=== PATIENT | male | born 1965 | race African-American/Black ===

== ENCOUNTER 2021-10-04 02:53 | Emergency (ER) | payer MEDICAID ==
[~2021-10-04] VITALS: Ht 172.7 cm; Wt 81.6 kg
[2021-10-04] MEDS ORDERED: PREDNISONE 20MG TABLET PO STA (05:49)
[2021-10-04] MEDS ORDERED: IPRATROPIUM BROMIDE (0.02%) 0.5MG/2.5ML NEB HHN STA (05:49)
[2021-10-04] MEDS ORDERED: ALBUTEROL (0.083%) 2.5MG/3ML NEB HHN STA (05:49)
[2021-10-04 06:28] LABS: BG BASE EXCESS -0.6 mmol/L (-2.0-2.0); BG DEOXYHEMOGLOBIN 3.4 % (0.0-5.0); BG FRACTION INSPIRED OXYGEN 21; BG HCO3 ACT 24.3 mmol/L (22.0-26.0); BG METHEMOGLOBIN 0.1 % (0.0-1.5); BG OXYGEN SATURATION 96.6 % (92.0-98.5); BG OXYHEMOGLOBIN 96.5 % (94.0-97.0); BG PCO2 41.2 mmHg (35.0-45.0); BG PH 7.389 (7.350-7.450); BG SAMPLE SITE RIGHT RADIAL; BG TOTAL HEMOGLOBIN 15.1 g/dL (12.0-18.0); BG VENT MODE ROOM AIR
[2021-10-04 07:03] LABS: CHLORIDE 104 mEq/L (98-107)
[2021-10-04 07:05] LABS: BASOPHILS % 0.3 % (0.0-2.0); EOSINOPHILS % 3.1 % (0.0-5.0); HEMATOCRIT. 44.8 % (42.0-52.0); HEMOGLOBIN. 14.5 g/dL (14.0-18.0); LYMPHOCYTES % 28.7 % (20.0-50.0); MEAN CORPUSCULAR HEMOGLOBIN 27.2 pg (28.0-32.0); MEAN CORPUSCULAR VOLUME 84.1 fL (80.0-94.0); MEAN PLATELET VOLUME 7.4 fl (7.4-10.4); MONOCYTES % 8.1 % (2.0-8.0); NEUTROPHILS % 59.8 % (40.0-76.0); PLATELET 313 x1000/uL (130-400); RED BLOOD CELL COUNT 5.33 mill/uL (4.7-6.1); RED CELL DISTRIBUTION WIDTH 14.5 % (11.6-14.6)
[2021-10-04] MEDS ORDERED: ALBU6.7H3 INH (07:39)
[2021-10-04] MEDS ORDERED: P50 PO (07:39)
[2021-10-04 08:31] VITALS: BP 129/74
== END 2021-10-04 08:35 | disposition home or self-care (01) ==
LOC: ER 02:53
DX: J45.901 Unspecified asthma with (acute) exacerbation (principal); R94.31 Abnormal electrocardiogram [ECG] [EKG]
CPT/HCPCS: 36415; 36600; 71045; 80053; 82375; 82805; 84484; 85025; 93005; 94640; 99285; J7512; Z7610

== ENCOUNTER 2022-09-17 20:40 | Emergency (ER) | payer MEDICAID ==
[~2022-09-17] VITALS: Ht 188 cm; Wt 96.6 kg
[~2022-09-17 20:40] MED LIST: ALBU6.7H3 INH; P50 PO
[2022-09-17 21:14] VITALS: BP 134/85; PULSE 83; RESP 15; TEMP 98.7; O2SAT 98
[2022-09-17 21:36] LABS: CLARITY URINE CLEAR (CLEAR); COLOR URINE YELLOW (YELLOW); KETONES URINE TRACE (NEGATIVE); LEUKOCYTE ESTERASE URINE NEGATIVE (NEGATIVE); NITRITE URINE NEGATIVE (NEGATIVE); OCCULT BLOOD URINE NEGATIVE (NEGATIVE); PROTEIN URINE TRACE (NEGATIVE); SPECIFIC GRAVITY URINE 1.026 (1.005-1.030)
[2022-09-20 08:10] LABS: HIV SCREEN 4G Non Reactive (Non Reactive)
[2022-09-21 09:07] LABS: NEISSERIA GONORRHOEAE NAA Negative (Negative)
== END 2022-09-17 23:28 | disposition home or self-care (01) ==
LOC: ER 20:40
DX: A64 Unspecified sexually transmitted disease (principal); J45.909 Unspecified asthma, uncomplicated
CPT/HCPCS: 81003; 87389; 87491; 87529; 87591; 99283

== ENCOUNTER 2022-09-19 17:20 | Emergency (ER) | payer MEDICAID ==
[~2022-09-19] VITALS: Ht 182.9 cm; Wt 99.0 kg
[2022-09-19 17:25] VITALS: BP 161/96; PULSE 84; RESP 20; TEMP 98.4; O2SAT 97
[2022-09-19] MEDS ORDERED: PENICILLIN G BENZATHINE 2,400,000 UNITS/4ML SYR IM ONE (17:45)
[2022-09-19] MEDS ORDERED: DOXY100C5 MT (18:59)
== END 2022-09-19 20:21 | disposition home or self-care (01) ==
LOC: ER 20:08
DX: A53.9 Syphilis, unspecified (principal); J45.909 Unspecified asthma, uncomplicated; Z98.890 Other specified postprocedural states
CPT/HCPCS: 96372; 99283; J0561

== ENCOUNTER 2023-01-06 21:21 | Emergency (ER) | payer MEDICAID ==
[~2023-01-06] VITALS: Ht 188 cm; Wt 90.0 kg
[~2023-01-06 21:21] MED LIST changes: +DOXY100C5 MT
[2023-01-06 21:26] VITALS: BP 115/71; PULSE 87; RESP 15; TEMP 98.5; O2SAT 98
[2023-01-06] MEDS ORDERED: ONDANSETRON 4MG ODT PO ONE (21:30)
[2023-01-06 21:59] LABS: BASOPHILS % 0.5 % (0.0-2.0); EOSINOPHILS % 2.4 % (0.0-5.0); HEMOGLOBIN. 13.9 g/dL (14.0-18.0); LYMPHOCYTES % 22.4 % (20.0-50.0); MEAN CORPUSCULAR HGB CONC 33.1 g/dL (31.0-37.0); MEAN CORPUSCULAR VOLUME 84.5 fL (80.0-94.0); MONOCYTES % 7.2 % (2.0-8.0); NEUTROPHILS % 67.5 % (40.0-76.0); PLATELET 336 x1000/uL (130-400); RED BLOOD CELL COUNT 4.97 mill/uL (4.7-6.1); RED CELL DISTRIBUTION WIDTH 14.4 % (11.6-14.6); WHITE BLOOD COUNT 4.5 x1000/uL (4.5-11.0)
[2023-01-06 22:20] LABS: ALANINE AMINOTRANSFERASE 32 IU/L (10-49); ALBUMIN 3.9 g/dL (3.2-4.8); ASPARTATE AMINOTRANSFERASE 27 IU/L (<34); BILIRUBIN TOTAL 1.5 mg/dL (0.1-1.0); CALCIUM 9.1 mg/dL (8.7-10.4); CARBON DIOXIDE 26 mEq/L (21-32); CHLORIDE 105 mEq/L (98-107); CREATININE 1.2 mg/dL (0.6-1.3); GLUCOSE 181 mg/dL (70-105); POTASSIUM 3.3 mEq/L (3.5-5.1); SODIUM 139 mEq/L (136-145); UREA NITROGEN BLOOD 9 mg/dL (9-23)
[2023-01-06 22:24] LABS: ETHANOL BLOOD < 10 mg/dL (<10)
== END 2023-01-07 02:12 | disposition home or self-care (01) ==
LOC: ER 21:21
DX: F14.10 Cocaine abuse, uncomplicated (principal); J45.909 Unspecified asthma, uncomplicated
CPT/HCPCS: 36415; 80053; 80320; 85025; 99283; G0480

== ENCOUNTER 2024-01-04 09:47 | Emergency (ER) | payer BC, MEDICAID, OTHER ==
[~2024-01-04] VITALS: Ht 185.4 cm; Wt 82.0 kg
[2024-01-04 09:49] VITALS: O2SAT 97
[2024-01-04] MEDS ORDERED: METHYLPREDNISOLONE SOD SUCC 125MG/2ML (ACT-O-VIAL) IV STA (09:52)
[2024-01-04 10:20] VITALS: PULSE 80; RESP 24
[2024-01-04] MEDS: ALBUTEROL (0.083%) 2.5MG/3ML NEB HHN STA (10:20)
[2024-01-04] MEDS: IPRATROPIUM BROMIDE (0.02%) 0.5MG/2.5ML NEB HHN STA (10:20)
[2024-01-04] MEDS ORDERED: ALBU18HF2 IH (11:06)
[2024-01-04] MEDS ORDERED: BECL10.6 INH (11:06)
[2024-01-04] MEDS: METHYLPREDNISOLONE SOD SUCC 125MG/2ML (ACT-O-VIAL) IV NR (13:03)
[2024-01-04 13:10] VITALS: BP 134/59; PULSE 82; RESP 20; TEMP 36.78072; O2SAT 98
== END 2024-01-04 13:10 | disposition home or self-care (01) ==
LOC: ER 09:47
DX: J45.909 Unspecified asthma, uncomplicated (principal)
CPT/HCPCS: 94640; 96374; 99285; Z7610

== ENCOUNTER 2024-01-24 06:28 | Emergency (ER) | payer MEDICAID ==
[~2024-01-24] VITALS: Ht 185.4 cm; Wt 100.0 kg
[~2024-01-24 06:28] MED LIST changes: +ALBU18HF2 IH; +BECL10.6 INH
[2024-01-24] MEDS: PREDNISONE 20MG TABLET PO STA (06:29)
[2024-01-24 06:31] VITALS: TEMP 98.4
[2024-01-24 07:37] VITALS: PULSE 61; RESP 19; O2SAT 100
[2024-01-24] MEDS: ALBUTEROL (0.083%) 2.5MG/3ML NEB HHN STA (07:37)
[2024-01-24] MEDS: IPRATROPIUM BROMIDE (0.02%) 0.5MG/2.5ML NEB HHN STA (07:38)
[2024-01-24 08:25] VITALS: BP 143/81; PULSE 62; RESP 18; O2SAT 100
== END 2024-01-24 08:51 | disposition home or self-care (01) ==
LOC: ER 06:28
DX: J45.909 Unspecified asthma, uncomplicated (principal); Z79.899 Other long term (current) drug therapy
CPT/HCPCS: 94644; 99285; J7512; Z7610; 94640